=== PATIENT | male | born 1955 | race Caucasian/White ===

== ENCOUNTER 2016-05-12 17:46 | Inpatient (IN) | payer MEDICAID ==
[~2016-05-12] VITALS: Ht 175.3 cm; Wt 73.0 kg
[~2016-05-12 17:46] MED LIST: ACET325T14 PO; AMIO200T PO; AMOX-367 PO; ASPI-515 PO; ASPI-621 PO; ASPI-650 PO; CARV3.1212 PO; CARV3.122 PO; FURO-93 PO; FURO40TA6 PO; LISI5TAB7 PO; OXYC5TAB3 PO; POTA20PA8 PO; SULF1TAB24 PO
[2016-05-12] MEDS ORDERED: FENTANYL PF 100 MCG/2ML ONE (18:09)
[2016-05-12] MEDS ORDERED: ONDANSETRON 2MG/ML, 2ML ONE ×2 (18:09→19:23)
[2016-05-12] MEDS ORDERED: SODIUM CHLORIDE FLUSH 10ML SYR IVF ONE (18:30)
[2016-05-12] MEDS ORDERED: FENTANYL PF 100 MCG/2ML IV ONE (18:30)
[2016-05-12] MEDS ORDERED: ONDANSETRON 2MG/ML, 2ML IVPush ONE ×2 (18:30→20:00)
[2016-05-12] MEDS ORDERED: SODIUM CHLORIDE 0.9% 1,000ML IVBOLUS ONE ×2 (18:30→20:00)
[2016-05-12 18:38] LABS: HEMOGLOBIN 12.7 g/dL (13.7-18.0)
[2016-05-12 18:48] LABS: ASPARTATE AMINO TRANSFERASE 45 U/L (15-37); BLOOD UREA NITROGEN 20 mg/dL (7-18)
[2016-05-12 18:59] LABS: IS PT STATUS REG ER OR PRE ER? YES
[2016-05-12 19:19] LABS: ANISOCYTOSIS 1+; HYPOCHROMIA 1+; SPHEROCYTES 1+
[2016-05-12 19:20] LABS: OVALOCYTES 1+
[2016-05-12 19:40] LABS: ICTOTEST NEGATIVE
[2016-05-12] MEDS ORDERED: LORazepam 2 MG/ML, 1ML ONE (19:48)
[2016-05-12] MEDS ORDERED: PIPERACILLIN/TAZO/PMX 3.375GM 50 ML ONE (19:48)
[2016-05-12] MEDS ORDERED: PIPERACILLIN/TAZO/PMX 3.375GM 50 ML IV ONE (20:00)
[2016-05-12] MEDS ORDERED: LORazepam 2 MG/ML, 1ML IVPush ONE (20:00)
[2016-05-12] MEDS ORDERED: OMNIPAQUE 350 MG/ML, 100ML BOTTLE ONE (20:07)
[2016-05-12] MEDS ORDERED: ACETAMINOPHEN 500 MG TABLET PO ONE (21:00)
[2016-05-12] MEDS ORDERED: ACETAMINOPHEN 500 MG TABLET ONE (21:05)
[2016-05-12] MEDS ORDERED: ONDANSETRON 2MG/ML, 2ML IVP PRN (21:30)
[2016-05-12] MEDS ORDERED: ZOLPIDEM 5MG TABLET PO PRN (21:30)
[2016-05-12] MEDS ORDERED: PROMETHAZINE 25 MG/ML, 1ML IM PRN (21:30)
[2016-05-12] MEDS ORDERED: MORPHINE SULFATE 4 MG/ML, 1ML IVPush PRN (21:30)
[2016-05-12] MEDS ORDERED: OXYcodone IR 5MG TABLET PO PRN (21:30)
[2016-05-12] MEDS ORDERED: DOCUSATE 100 MG CAPSULE PO PRN (21:30)
[2016-05-12] MEDS ORDERED: BISACODYL 10 MG SUPP PR PRN (21:30)
[2016-05-12] MEDS ORDERED: POLYETHYLENE GLYCOL 17 GM PACKET PO PRN (21:30)
[2016-05-12] MEDS ORDERED: PANTOPRAZOLE 40 MG IV ONE (21:50)
[2016-05-12] MEDS: PANTOPRAZOLE 40 MG IV IVP SCH (21:52)
[2016-05-12] MEDS: SODIUM CHLORIDE 0.9% 1,000 ML IV SCH (21:54)
[2016-05-12] MEDS: PIPERACILLIN/TAZO/PMX 3.375GM 50 ML IV SCH (21:54)
[2016-05-12 22:16] LABS: DAU SCREEN DISCLAIMER
[2016-05-12] MEDS ORDERED: OMNIPAQUE 350 MG/ML, 75ML BOTTLE ONE (22:25)
[2016-05-12 22:51] LABS: IS PT STATUS REG ER OR PRE ER? YES
[2016-05-12] MEDS: SUCRALFATE 1 GM/10 ML UDC PO SCH (23:36)
[2016-05-13] MEDS ORDERED: OXYcodone IR 5MG TABLET ONE (02:50)
[2016-05-13] MEDS ORDERED: ACETAMINOPHEN 325 MG TABLET ONE (03:26)
[2016-05-13] MEDS ORDERED: PIPERACILLIN/TAZO/PMX 3.375GM 50 ML ONE (03:26)
[2016-05-13] MEDS: PIPERACILLIN/TAZO/PMX 3.375GM 50 ML IV SCH ×2 (03:33→08:35)
[2016-05-13] MEDS: ACETAMINOPHEN 325 MG TABLET PO PRN ×2 (03:33→08:33)
[2016-05-13] MEDS: SODIUM CHLORIDE 0.9% 1,000 ML IV SCH (05:34)
[2016-05-13 05:43] VITALS: BP 93/57
[2016-05-13] MEDS ORDERED: CARVEDILOL 3.125 MG TABLET PO SCH (06:00)
[2016-05-13 07:05] LABS: HEMOGLOBIN 10.7 g/dL (13.7-18.0)
[2016-05-13 07:10] LABS: ASPARTATE AMINO TRANSFERASE 62 U/L (15-37); BLOOD UREA NITROGEN 23 mg/dL (7-18)
[2016-05-13 07:17] LABS: IS PT STATUS REG ER OR PRE ER? NO
[2016-05-13 07:47] LABS: DIFF TOTAL CELLS COUNTED 100 CELL DIFF
[2016-05-13 07:49] LABS: VERIFY COUNTS? YES
[2016-05-13 07:50] LABS: ANISOCYTOSIS 1+; OVALOCYTES 1+
[2016-05-13 08:02] VITALS: BP_SYST 95; BP_SYST 96; BP_DIAS 60
[2016-05-13] MEDS: SUCRALFATE 1 GM/10 ML UDC PO SCH ×2 (08:33→11:13)
[2016-05-13] MEDS: PANTOPRAZOLE 40 MG IV IVP SCH (08:35)
[2016-05-13] MEDS ORDERED: LISINOPRIL 5 MG TABLET PO SCH (09:00)
[2016-05-13] MEDS ORDERED: SENNA/DOCUSATE TABLET PO SCH (09:00)
[2016-05-13] MEDS ORDERED: LORazepam 2 MG/ML, 1ML IV PRN (10:00)
== END 2016-05-13 12:06 | disposition left against medical advice (07) | DRG 871 ==
LOC: ED 19:56 → EDIP 20:48 → SUATTDRO 21:13 → 5SO 05-13 05:06
PROC: 0T9B70Z Drainage of Bladder with Drainage Device, Via Natural or Artificial Opening (ICD-10-PCS; principal; 2016-05-12)
DX: A41.9 Sepsis, unspecified organism (principal); N17.0 Acute kidney failure with tubular necrosis; K22.6 Gastro-esophageal laceration-hemorrhage syndrome; I42.9 Cardiomyopathy, unspecified; I50.22 Chronic systolic (congestive) heart failure; N13.2 Hydronephrosis with renal and ureteral calculous obstruction; I11.0 Hypertensive heart disease with heart failure; B18.2 Chronic viral hepatitis C; D64.9 Anemia, unspecified; F15.90 Other stimulant use, unspecified, uncomplicated; F19.10 Other psychoactive substance abuse, uncomplicated; R07.9 Chest pain, unspecified; R74.0 Nonspecific elevation of levels of transaminase and lactic acid dehydrogenase [LDH]; D69.6 Thrombocytopenia, unspecified; Z98.890 Other specified postprocedural states; Z79.899 Other long term (current) drug therapy; I25.2 Old myocardial infarction
CPT/HCPCS: 36415; 71010; 71260; 74177; 80053; 80307; 81001; 82010; 83605; 83690; 83880; 84145; 84484; 85018; 85025; 85610; 86850; 86900; 87040; 87086; 93005; 96361; 96365; 96375; 96376; J2405; J2543; J3010; Q9967; C9113; J2060; J7030

== ENCOUNTER 2016-06-14 11:35 | Emergency (ER) | payer MEDICAID ==
[~2016-06-14] VITALS: Ht 177.8 cm; Wt 76.2 kg
[2016-06-14] MEDS ORDERED: ACETAMINOPHEN 500 MG TABLET ONE (12:20)
[2016-06-14] MEDS ORDERED: KETOROLAC 30 MG/1 ML ONE (12:20)
[2016-06-14] MEDS ORDERED: CEFTRIAXONE PMX 1GM/50ML 50 ML ONE (12:20)
[2016-06-14] MEDS ORDERED: SODIUM CHLORIDE 0.9% 1,000ML IVBOLUS ONE (12:30)
[2016-06-14] MEDS ORDERED: ACETAMINOPHEN 500 MG TABLET PO ONE (12:30)
[2016-06-14] MEDS ORDERED: SODIUM CHLORIDE FLUSH 10ML SYR IVF ONE (12:30)
[2016-06-14] MEDS ORDERED: CEFTRIAXONE PMX 1GM/50ML 50 ML IVPB ONE (12:30)
[2016-06-14] MEDS ORDERED: KETOROLAC 30 MG/1 ML IVPush ONE (12:30)
[2016-06-14 12:42] LABS: BLOOD UREA NITROGEN 20 mg/dL (7-18)
[2016-06-14 12:46] VITALS: BP 142/91
[2016-06-14 12:47] LABS: DAU SCREEN DISCLAIMER; IS PT STATUS REG ER OR PRE ER? YES
== END 2016-06-14 15:38 | disposition left against medical advice (07) ==
LOC: ED 12:42 → UNDOADMIN 13:57 → EDIP 13:57
DX: F15.10 Other stimulant abuse, uncomplicated (principal); I11.0 Hypertensive heart disease with heart failure; E78.5 Hyperlipidemia, unspecified; I25.10 Atherosclerotic heart disease of native coronary artery without angina pectoris; I25.2 Old myocardial infarction
CPT/HCPCS: 36415; 71010; 80048; 80307; 81001; 82040; 83880; 84484; 85025; 85610; 85730; 87040; 87086; 87106; 93005; 96365; 96375; 99285; J0696; J1885

== ENCOUNTER 2016-08-05 18:14 | Inpatient (IN) | payer MEDICAID ==
[~2016-08-05] VITALS: Ht 175.3 cm; Wt 74.2 kg
[2016-08-05] MEDS ORDERED: ASPIRIN 81 MG TABLET CHEW ONE (18:50)
[2016-08-05] MEDS ORDERED: ASPIRIN 81 MG TABLET CHEW PO ONE (19:00)
[2016-08-05 19:18] LABS: ASPARTATE AMINO TRANSFERASE 75 U/L (15-37); BLOOD UREA NITROGEN 31 mg/dL (7-18)
[2016-08-05 19:23] LABS: IS PT STATUS REG ER OR PRE ER? YES
[2016-08-05] MEDS ORDERED: SODIUM CHLORIDE 0.9% 1,000 ML IV ONE (19:43)
[2016-08-05] MEDS ORDERED: ONDANSETRON 2MG/ML, 2ML IVPush PRN (20:00)
[2016-08-05] MEDS ORDERED: LEVOFLOXACIN/PMX 500MG/100ML 100 ML IV SCH (20:00)
[2016-08-05] MEDS ORDERED: CEFTRIAXONE 1,000 MG in SODIUM CHLORIDE 0.9% 50 ML IV SCH (20:30)
[2016-08-05] MEDS ORDERED: ACETAMINOPHEN 325 MG TABLET PO PRN (20:30)
[2016-08-05] MEDS ORDERED: AZITHROMYCIN 500 MG in SODIUM CHLORIDE 0.9% 250 ML IV SCH (20:30)
[2016-08-05] MEDS ORDERED: BISACODYL 10 MG SUPP PR PRN (20:30)
[2016-08-05] MEDS ORDERED: NITROGLYCERIN 0.4 MG BOTTLE (25 TABS) SL PRN (20:30)
[2016-08-05] MEDS ORDERED: POLYETHYLENE GLYCOL 17 GM PACKET PO PRN (20:30)
[2016-08-05] MEDS ORDERED: GUAIFENESIN/DM 200-20MG, 10ML UDC PO PRN (20:30)
[2016-08-05] MEDS: SODIUM CHLORIDE FLUSH 3ML SYRINGE IVF SCH (21:00)
[2016-08-05 21:30] VITALS: BP 109/58
[2016-08-05] MEDS: LISINOPRIL 5 MG TABLET PO SCH (22:14)
[2016-08-05] MEDS: FUROSEMIDE 20 MG TABLET PO SCH (22:14)
[2016-08-05] MEDS: HEPARIN 5,000 UNITS/ML, 1ML SQ SCH (22:15)
[2016-08-05] MEDS: CARVEDILOL 3.125 MG TABLET PO SCH (22:15)
[2016-08-06 01:28] LABS: IS PT STATUS REG ER OR PRE ER? NO
[2016-08-06 02:12] VITALS: BP 116/70
[2016-08-06] MEDS: KETOROLAC 30 MG/1 ML IVPush PRN ×2 (03:43→18:12)
[2016-08-06] MEDS: HEPARIN 5,000 UNITS/ML, 1ML SQ SCH ×3 (05:26→20:27)
[2016-08-06] MEDS: CARVEDILOL 3.125 MG TABLET PO SCH ×2 (05:26→18:13)
[2016-08-06 07:33] LABS: ASPARTATE AMINO TRANSFERASE 54 U/L (15-37); BLOOD UREA NITROGEN 32 mg/dL (7-18)
[2016-08-06 07:45] LABS: IS PT STATUS REG ER OR PRE ER? NO
[2016-08-06 08:06] VITALS: BP 107/61
[2016-08-06] MEDS ORDERED: SENNA/DOCUSATE TABLET PO SCH (09:00)
[2016-08-06] MEDS: ASPIRIN 81 MG TABLET EC PO SCH (09:15)
[2016-08-06] MEDS: LISINOPRIL 5 MG TABLET PO SCH ×2 (09:15→20:28)
[2016-08-06] MEDS: FUROSEMIDE 20 MG TABLET PO SCH ×2 (09:16→20:28)
[2016-08-06] MEDS ORDERED: REGADENOSON 0.4 MG/5 ML SYRINGE ONE (11:40)
[2016-08-06] MEDS: SODIUM CHLORIDE FLUSH 3ML SYRINGE IVF SCH ×2 (11:56→20:28)
[2016-08-06] MEDS: DOXYCYCLINE 100 MG in DEXTROSE 5% 250 ML IV SCH ×2 (11:56→22:35)
[2016-08-06 13:52] VITALS: BP 114/63
[2016-08-06 20:10] VITALS: BP 111/86
[2016-08-06] MEDS: CEFTRIAXONE PMX 1GM/50ML 50 ML IV SCH (20:27)
[2016-08-07 02:53] VITALS: BP 146/94
[2016-08-07] MEDS: CARVEDILOL 3.125 MG TABLET PO SCH ×2 (05:07→16:54)
[2016-08-07] MEDS: HEPARIN 5,000 UNITS/ML, 1ML SQ SCH ×3 (05:07→20:29)
[2016-08-07 05:57] LABS: ASPARTATE AMINO TRANSFERASE 65 U/L (15-37); BLOOD UREA NITROGEN 38 mg/dL (7-18)
[2016-08-07] MEDS ORDERED: REGADENOSON 0.4 MG/5 ML SYRINGE ONE (08:03)
[2016-08-07 08:10] VITALS: BP 140/90
[2016-08-07] MEDS: ONDANSETRON 2MG/ML, 2ML IVPush PRN (08:11)
[2016-08-07] MEDS: DOXYCYCLINE 100 MG in DEXTROSE 5% 250 ML IV SCH ×2 (10:03→22:02)
[2016-08-07] MEDS: ASPIRIN 81 MG TABLET EC PO SCH (10:03)
[2016-08-07] MEDS: SODIUM CHLORIDE FLUSH 3ML SYRINGE IVF SCH ×2 (10:03→20:29)
[2016-08-07] MEDS: FUROSEMIDE 20 MG TABLET PO SCH ×2 (10:04→20:28)
[2016-08-07] MEDS: LISINOPRIL 5 MG TABLET PO SCH ×2 (10:04→20:28)
[2016-08-07] MEDS: SENNA/DOCUSATE TABLET PO SCH (10:05)
[2016-08-07] MEDS: KETOROLAC 30 MG/1 ML IVPush PRN (12:43)
[2016-08-07] MEDS: GUAIFENESIN 200 MG TABLET PO SCH ×3 (13:21→20:28)
[2016-08-07 13:30] VITALS: BP 126/79
[2016-08-07 19:09] VITALS: BP 133/92
[2016-08-07] MEDS: CEFTRIAXONE PMX 1GM/50ML 50 ML IV SCH (20:28)
[2016-08-07] MEDS ORDERED: ZOLPIDEM 5MG TABLET PO PRN (20:30)
[2016-08-08 02:35] VITALS: BP 134/88
[2016-08-08] MEDS: CARVEDILOL 3.125 MG TABLET PO SCH (05:54)
[2016-08-08] MEDS: HEPARIN 5,000 UNITS/ML, 1ML SQ SCH (05:54)
[2016-08-08] MEDS: GUAIFENESIN 200 MG TABLET PO SCH (05:54)
[2016-08-08 07:57] VITALS: BP 147/93
[2016-08-08] MEDS: ASPIRIN 81 MG TABLET EC PO SCH (09:36)
[2016-08-08] MEDS: LISINOPRIL 5 MG TABLET PO SCH (09:36)
[2016-08-08] MEDS: SODIUM CHLORIDE FLUSH 3ML SYRINGE IVF SCH (09:37)
[2016-08-08] MEDS: FUROSEMIDE 20 MG TABLET PO SCH (09:37)
[2016-08-08] MEDS: SENNA/DOCUSATE TABLET PO SCH (09:37)
[2016-08-08] MEDS: ONDANSETRON 2MG/ML, 2ML IVPush PRN (09:41)
[2016-08-08] MEDS ORDERED: DOXY100T PO (10:18)
[2016-08-08] MEDS ORDERED: CEFD300C37 PO (10:18)
[2016-08-08] MEDS ORDERED: GUAI200T3 PO (10:18)
[2016-08-08] MEDS ORDERED: DOXYCYCLINE 100MG TABLET PO SCH (11:00)
[2016-08-08] MEDS ORDERED: CEFDINIR 300 MG CAPSULE PO SCH (21:00)
== END 2016-08-08 12:45 | disposition home or self-care (01) | DRG 194 ==
LOC: ED 19:14 → EDIP 20:17 → 4WST 21:11
PROVIDERS: ADMIT Internal Medicine; ATTEND Internal Medicine
DX: J18.9 Pneumonia, unspecified organism (principal); I42.9 Cardiomyopathy, unspecified; I50.22 Chronic systolic (congestive) heart failure; E44.1 Mild protein-calorie malnutrition; J98.11 Atelectasis; I13.0 Hypertensive heart and chronic kidney disease with heart failure and stage 1 through stage 4 chronic kidney disease, or unspecified chronic kidney disease; D69.6 Thrombocytopenia, unspecified; Z66 Do not resuscitate; B19.20 Unspecified viral hepatitis C without hepatic coma; F11.21 Opioid dependence, in remission; I35.0 Nonrheumatic aortic (valve) stenosis; Z68.21 Body mass index [BMI] 21.0-21.9, adult; N18.1 Chronic kidney disease, stage 1; I25.10 Atherosclerotic heart disease of native coronary artery without angina pectoris; E78.5 Hyperlipidemia, unspecified; K74.60 Unspecified cirrhosis of liver; I25.2 Old myocardial infarction; Z86.14 Personal history of Methicillin resistant Staphylococcus aureus infection
CPT/HCPCS: 36415; 71010; 80053; 83880; 84145; 84484; 85025; 87040; 93005; 93306; 96374; J0456; J0696; J1644; J1885; J1956; J2405; J2785; J7060; J7030; J7050

== ENCOUNTER 2016-09-26 05:20 | Emergency (ER) | payer MEDICAID ==
[~2016-09-26] VITALS: Ht 172.7 cm; Wt 72.3 kg
[~2016-09-26 05:20] MED LIST changes: +CEFD300C37 PO; +DOXY100T PO; +GUAI200T3 PO
[2016-09-26] MEDS ORDERED: ASPIRIN 81 MG TABLET CHEW PO ONE (06:00)
[2016-09-26] MEDS ORDERED: ASPIRIN 81 MG TABLET CHEW ONE (06:19)
[2016-09-26 06:41] VITALS: BP 136/87
[2016-09-26 06:44] LABS: ASPARTATE AMINO TRANSFERASE 57 U/L (15-37); BLOOD UREA NITROGEN 15 mg/dL (7-18)
[2016-09-26 06:49] LABS: IS PT STATUS REG ER OR PRE ER? YES
[2016-09-26] MEDS ORDERED: FUROSEMIDE 20 MG TABLET PO ONE (07:30)
== END 2016-09-26 07:43 | disposition home or self-care (01) ==
LOC: ED 05:53
DX: I11.0 Hypertensive heart disease with heart failure (principal); F15.10 Other stimulant abuse, uncomplicated
CPT/HCPCS: 36415; 71010; 80053; 83880; 84484; 85025; 93005; 99285

== ENCOUNTER 2016-12-04 21:36 | Emergency (ER) | payer MEDICAID ==
[~2016-12-04] VITALS: Ht 177.8 cm; Wt 75.0 kg
[~2016-12-04 21:36] MED LIST changes: +POTA20PA25 PO; -POTA20PA8 PO
[2016-12-04] MEDS ORDERED: LIDOCAINE 1%, 20ML ONE (21:51)
[2016-12-04] MEDS ORDERED: DIPH,PERTUSS(ACELL),TET VAC/PF 0.5 ML IM-VACC ONE ×2 (22:00→22:01)
[2016-12-04] MEDS ORDERED: LIDOCAINE 1%, 10ML INFIL ONE (22:00)
[2016-12-04 22:35] VITALS: BP 124/87
== END 2016-12-04 22:41 | disposition home or self-care (01) ==
LOC: ED 22:07
DX: L02.31 Cutaneous abscess of buttock (principal); E78.5 Hyperlipidemia, unspecified; I95.9 Hypotension, unspecified; I25.2 Old myocardial infarction; I50.9 Heart failure, unspecified; I25.10 Atherosclerotic heart disease of native coronary artery without angina pectoris; N18.1 Chronic kidney disease, stage 1; Z86.14 Personal history of Methicillin resistant Staphylococcus aureus infection
CPT/HCPCS: 90471; 90715

== ENCOUNTER 2016-12-08 04:07 | Emergency (ER) | payer MEDICAID ==
[~2016-12-08] VITALS: Ht 175.3 cm; Wt 72.0 kg
[2016-12-08 04:10] VITALS: BP 174/102
== END 2016-12-08 05:26 | disposition home or self-care (01) ==
LOC: ED 05:19
DX: Z48.01 Encounter for change or removal of surgical wound dressing (principal)
CPT/HCPCS: 99281

== ENCOUNTER 2016-12-09 21:28 | Emergency (ER) | payer MEDICAID ==
[~2016-12-09] VITALS: Ht 175.3 cm; Wt 68.8 kg
[2016-12-09 21:31] VITALS: BP 103/77
== END 2016-12-09 22:32 | disposition home or self-care (01) ==
LOC: ED 22:20
DX: L03.115 Cellulitis of right lower limb (principal); Z87.891 Personal history of nicotine dependence; I10 Essential (primary) hypertension; I25.2 Old myocardial infarction; Z86.14 Personal history of Methicillin resistant Staphylococcus aureus infection; I25.10 Atherosclerotic heart disease of native coronary artery without angina pectoris; E78.5 Hyperlipidemia, unspecified
CPT/HCPCS: 99281

== ENCOUNTER 2017-06-21 13:30 | Emergency (ER) | payer MEDICAID ==
[~2017-06-21] VITALS: Ht 175.3 cm; Wt 75.0 kg
[2017-06-21] MEDS ORDERED: ASPIRIN 81 MG TABLET CHEW PO ONE (14:00)
[2017-06-21] MEDS ORDERED: SODIUM CHLORIDE 0.9% 1,000ML IVBOLUS ONE (14:00)
[2017-06-21 14:26] LABS: BASOPHILS # (AUTO) 0.02 x10^3/uL (0-0.1); BASOPHILS % (AUTO) 0 % (0-1); EOSINOPHILS # (AUTO) 0.01 x10^3/uL (0-0.4); EOSINOPHILS % (AUTO) 0 % (1-7); LYMPHOCYTES # (AUTO) 1.02 x10^3/uL (1-3.4); LYMPHOCYTES % (AUTO) 12 % (22-44); MD NO; MEAN CORPUSCULAR HGB CONC 33.6 g/dL (33.2-36.2); MEAN CORPUSCULAR VOLUME 86.4 fL (81-97); MEAN PLATELET VOLUME 8.4 fL (7.4-10.4); MONOCYTES # (AUTO) 0.61 x10^3/uL (0.2-0.8); MONOCYTES % (AUTO) 7 % (2-9); NEUTROPHILS # (AUTO) 7.11 x10^3/uL (1.8-6.8); NEUTROPHILS % (AUTO) 81 % (42-75); PLATELET COUNT 217 x10^3/uL (130-400); RED BLOOD COUNT 4.86 x10^6/uL (4.38-5.82); RED CELL DISTRIBUTION WIDTH 15.7 % (9.4-14.8)
[2017-06-21] MEDS ORDERED: ASPIRIN 81 MG TABLET CHEW ONE (14:38)
[2017-06-21 14:39] LABS: ALANINE AMINOTRANSFERASE 77 U/L (12-78); ALBUMIN 3.7 g/dL (3.4-5.0); ANION GAP 9 mmol/L (5-15); CALCIUM 9.2 mg/dL (8.5-10.1); CHLORIDE 108 mmol/L (98-107); CREATININE 1.81 mg/dL (0.7-1.3)
[2017-06-21 14:44] LABS: ALKALINE PHOSPHATASE 119 U/L (45-117); BILIRUBIN,TOTAL 0.6 mg/dL (0.2-1.0); TOTAL PROTEIN 7.6 g/dL (6.4-8.2); TROPONIN I 0.022 ng/mL (0.000-0.045)
[2017-06-21 15:39] VITALS: BP 97/67
== END 2017-06-21 15:43 | disposition home or self-care (01) ==
LOC: ED 14:00
DX: R07.89 Other chest pain (principal); E78.5 Hyperlipidemia, unspecified; I25.110 Atherosclerotic heart disease of native coronary artery with unstable angina pectoris; I13.0 Hypertensive heart and chronic kidney disease with heart failure and stage 1 through stage 4 chronic kidney disease, or unspecified chronic kidney disease; N18.1 Chronic kidney disease, stage 1; I50.9 Heart failure, unspecified; Z87.891 Personal history of nicotine dependence
CPT/HCPCS: 36415; 71045; 80053; 83690; 83880; 84484; 85025; 93005; 99285; J7030; 96360

== ENCOUNTER 2017-07-19 15:08 | Emergency (ER) | payer MEDICAID ==
[~2017-07-19] VITALS: Ht 177.8 cm; Wt 73.1 kg
[2017-07-19 15:12] VITALS: BP 125/77
== END 2017-07-19 16:34 | disposition left against medical advice (07) ==
LOC: ED 16:00
DX: Z53.21 Procedure and treatment not carried out due to patient leaving prior to being seen by health care provider (principal)

== ENCOUNTER 2017-07-22 20:02 | Emergency (ER) | payer MEDICAID ==
[~2017-07-22] VITALS: Ht 177.8 cm; Wt 67.9 kg
[2017-07-22 21:48] VITALS: BP 129/79
== END 2017-07-22 21:50 | disposition home or self-care (01) ==
LOC: ED 21:00
DX: J44.1 Chronic obstructive pulmonary disease with (acute) exacerbation (principal); E78.5 Hyperlipidemia, unspecified; I25.2 Old myocardial infarction; I12.9 Hypertensive chronic kidney disease with stage 1 through stage 4 chronic kidney disease, or unspecified chronic kidney disease; N18.1 Chronic kidney disease, stage 1; I25.10 Atherosclerotic heart disease of native coronary artery without angina pectoris; I50.9 Heart failure, unspecified
CPT/HCPCS: 71046; 99284

== ENCOUNTER 2017-09-10 14:41 | Emergency (ER) | payer MEDICAID ==
[~2017-09-10] VITALS: Ht 175.3 cm; Wt 70.2 kg
[2017-09-10 15:16] LABS: BASOPHILS # (AUTO) 0.02 x10^3/uL (0-0.1); BASOPHILS % (AUTO) 0 % (0-1); EOSINOPHILS # (AUTO) 0.13 x10^3/uL (0-0.4); EOSINOPHILS % (AUTO) 2 % (1-7); LYMPHOCYTES # (AUTO) 1.43 x10^3/uL (1-3.4); LYMPHOCYTES % (AUTO) 22 % (22-44); MD NO; MEAN CORPUSCULAR HEMOGLOBIN 29.3 pg (27.5-34.5); MEAN CORPUSCULAR HGB CONC 33.1 g/dL (33.2-36.2); MEAN CORPUSCULAR VOLUME 88.4 fL (81-97); MEAN PLATELET VOLUME 8.3 fL (7.4-10.4); MONOCYTES # (AUTO) 0.51 x10^3/uL (0.2-0.8); MONOCYTES % (AUTO) 8 % (2-9); NEUTROPHILS # (AUTO) 4.45 x10^3/uL (1.8-6.8); NEUTROPHILS % (AUTO) 68 % (42-75); PLATELET COUNT 214 x10^3/uL (130-400); RED BLOOD COUNT 4.61 x10^6/uL (4.38-5.82); RED CELL DISTRIBUTION WIDTH 15.6 % (9.4-14.8)
[2017-09-10 15:20] LABS: ALBUMIN 3.7 g/dL (3.4-5.0); ANION GAP 6 mmol/L (5-15); CALCIUM 8.6 mg/dL (8.5-10.1); CHLORIDE 111 mmol/L (98-107)
[2017-09-10 15:25] LABS: ALANINE AMINOTRANSFERASE 77 U/L (12-78); ALKALINE PHOSPHATASE 129 U/L (45-117); BILIRUBIN,TOTAL 0.8 mg/dL (0.2-1.0); CREATININE 1.34 mg/dL (0.7-1.3); TOTAL PROTEIN 7.1 g/dL (6.4-8.2); TROPONIN I < 0.015 ng/mL (0.000-0.045)
[2017-09-10 15:38] VITALS: BP 143/88
== END 2017-09-10 15:58 | disposition home or self-care (01) ==
LOC: ED 15:00
DX: R42 Dizziness and giddiness (principal); J44.9 Chronic obstructive pulmonary disease, unspecified; I25.2 Old myocardial infarction; I24.9 Acute ischemic heart disease, unspecified; I13.0 Hypertensive heart and chronic kidney disease with heart failure and stage 1 through stage 4 chronic kidney disease, or unspecified chronic kidney disease; N18.1 Chronic kidney disease, stage 1; I50.9 Heart failure, unspecified; I25.10 Atherosclerotic heart disease of native coronary artery without angina pectoris; E78.5 Hyperlipidemia, unspecified; R11.10 Vomiting, unspecified
CPT/HCPCS: 36415; 71045; 80053; 82962; 83880; 84484; 85025; 93005; 99285

== ENCOUNTER 2017-09-20 01:40 | Emergency (ER) | payer MEDICAID ==
[~2017-09-20] VITALS: Ht 177.8 cm; Wt 75.0 kg
[2017-09-20 01:41] VITALS: BP 138/89
[2017-09-20 02:21] LABS: BASOPHILS # (AUTO) 0.02 x10^3/uL (0-0.1); BASOPHILS % (AUTO) 0 % (0-1); EOSINOPHILS # (AUTO) 0.01 x10^3/uL (0-0.4); EOSINOPHILS % (AUTO) 0 % (1-7); LYMPHOCYTES # (AUTO) 0.86 x10^3/uL (1-3.4); LYMPHOCYTES % (AUTO) 8 % (22-44); MD NO; MEAN CORPUSCULAR HEMOGLOBIN 29.6 pg (27.5-34.5); MEAN CORPUSCULAR HGB CONC 33.9 g/dL (33.2-36.2); MEAN CORPUSCULAR VOLUME 87.3 fL (81-97); MEAN PLATELET VOLUME 8.3 fL (7.4-10.4); MONOCYTES # (AUTO) 0.85 x10^3/uL (0.2-0.8); MONOCYTES % (AUTO) 8 % (2-9); NEUTROPHILS # (AUTO) 9.56 x10^3/uL (1.8-6.8); NEUTROPHILS % (AUTO) 85 % (42-75); PLATELET COUNT 158 x10^3/uL (130-400); RED BLOOD COUNT 4.14 x10^6/uL (4.38-5.82); RED CELL DISTRIBUTION WIDTH 15.9 % (9.4-14.8)
[2017-09-20 02:33] LABS: ALANINE AMINOTRANSFERASE 68 U/L (12-78); ALBUMIN 3.6 g/dL (3.4-5.0); ANION GAP 6 mmol/L (5-15); CALCIUM 8.6 mg/dL (8.5-10.1); CHLORIDE 109 mmol/L (98-107); CREATININE 1.13 mg/dL (0.7-1.3)
[2017-09-20 02:35] LABS: ALKALINE PHOSPHATASE 114 U/L (45-117); BILIRUBIN,TOTAL 1.2 mg/dL (0.2-1.0); TOTAL PROTEIN 6.8 g/dL (6.4-8.2)
== END 2017-09-20 05:08 | disposition home or self-care (01) ==
LOC: ED 05:04
DX: K64.4 Residual hemorrhoidal skin tags (principal); K62.5 Hemorrhage of anus and rectum; I13.0 Hypertensive heart and chronic kidney disease with heart failure and stage 1 through stage 4 chronic kidney disease, or unspecified chronic kidney disease; I50.9 Heart failure, unspecified; I25.2 Old myocardial infarction; N18.1 Chronic kidney disease, stage 1; J44.9 Chronic obstructive pulmonary disease, unspecified; E78.00 Pure hypercholesterolemia, unspecified
CPT/HCPCS: 36415; 80053; 83690; 85025; 99284

== ENCOUNTER 2017-12-08 17:10 | Emergency (ER) | payer MEDICAID ==
[~2017-12-08] VITALS: Ht 175.3 cm; Wt 68.8 kg
[2017-12-08 17:20] VITALS: BP 149/99
[2017-12-08] MEDS ORDERED: KETOROLAC 30 MG/1 ML ONE (18:00)
[2017-12-08] MEDS ORDERED: KETOROLAC 30 MG/1 ML IM ONE (18:00)
== END 2017-12-08 18:27 | disposition home or self-care (01) ==
LOC: ED 18:21
DX: S90.851A Superficial foreign body, right foot, initial encounter (principal); J44.9 Chronic obstructive pulmonary disease, unspecified; I13.0 Hypertensive heart and chronic kidney disease with heart failure and stage 1 through stage 4 chronic kidney disease, or unspecified chronic kidney disease; I50.9 Heart failure, unspecified; N18.1 Chronic kidney disease, stage 1; E78.5 Hyperlipidemia, unspecified; I25.10 Atherosclerotic heart disease of native coronary artery without angina pectoris; I25.2 Old myocardial infarction; F17.200 Nicotine dependence, unspecified, uncomplicated; X58.XXXA Exposure to other specified factors, initial encounter; Y93.89 Activity, other specified; Y92.89 Other specified places as the place of occurrence of the external cause; Y99.8 Other external cause status
CPT/HCPCS: 73630; 96372; 99284; J1885

== ENCOUNTER 2018-02-15 00:16 | Inpatient (IN) | payer MEDICAID ==
[~2018-02-15] VITALS: Ht 177.8 cm; Wt 70.4 kg
[~2018-02-15 00:16] MED LIST changes: -ASPI-621 PO; +ASPI81TA45 PO
--- NOTE | 2018-02-15 00:29 | NUR ---
EKG DONE IN TRIAGE
--- NOTE | 2018-02-15 00:36 | NUR ---
Pt reports having CP and nausea "everytime I take my new heart medication" x1 week. pt states he was in [facility] last week for pneumonia and was placed on new heart medication r/t "lasix's kidney damage." Pt reports also having SOB. Pt a/ox4, breathing E/U at this time, lung clear t/o, VSS. Pt reports he uses meth occationally. denies drinking and smoking. Pt conversing well. Pt placed on cardiac and VS monitoring. Provider to bedside for pt eval.
--- NOTE | 2018-02-15 00:38 | NUR ---
BREAK RN: Dr. Francis at bedside to evaluate pt.
--- NOTE | 2018-02-15 00:42 | NUR ---
Report to Kathryn for lunch relief.
[2018-02-15] MEDS ORDERED: ONDANSETRON 2MG/ML, 2ML ONE (00:53)
[2018-02-15] MEDS ORDERED: ASPIRIN 81 MG TABLET CHEW ONE (00:53)
[2018-02-15] MEDS ORDERED: MORPHINE SULFATE 4 MG/ML, 1ML ONE (00:54)
[2018-02-15] MEDS ORDERED: ONDANSETRON 2MG/ML, 2ML IVPush ONE (01:00)
[2018-02-15] MEDS ORDERED: MORPHINE SULFATE 4 MG/ML, 1ML IVPush PRN (01:00)
[2018-02-15] MEDS ORDERED: ASPIRIN 81 MG TABLET CHEW PO ONE (01:00)
--- NOTE | 2018-02-15 01:15 | NUR ---
PIV started, labs drawn, pt medicated per MAR.
[2018-02-15 01:29] LABS: BASOPHILS # (AUTO) 0.03 x10^3/uL (0-0.1); BASOPHILS % (AUTO) 1 % (0-1); EOSINOPHILS # (AUTO) 0.21 x10^3/uL (0-0.4); EOSINOPHILS % (AUTO) 3 % (1-7); LYMPHOCYTES # (AUTO) 0.96 x10^3/uL (1-3.4); LYMPHOCYTES % (AUTO) 15 % (22-44); MD NO; MEAN CORPUSCULAR HEMOGLOBIN 29.2 pg (27.5-34.5); MEAN CORPUSCULAR HGB CONC 33.1 g/dL (33.2-36.2); MEAN CORPUSCULAR VOLUME 88.1 fL (81-97); MEAN PLATELET VOLUME 8.6 fL (7.4-10.4); MONOCYTES # (AUTO) 0.48 x10^3/uL (0.2-0.8); MONOCYTES % (AUTO) 7 % (2-9); NEUTROPHILS # (AUTO) 4.91 x10^3/uL (1.8-6.8); NEUTROPHILS % (AUTO) 75 % (42-75); PLATELET COUNT 223 x10^3/uL (130-400); RED BLOOD COUNT 3.91 x10^6/uL (4.38-5.82); RED CELL DISTRIBUTION WIDTH 16.4 % (9.4-14.8)
[2018-02-15 01:38] LABS: ALANINE AMINOTRANSFERASE 153 U/L (12-78); ALBUMIN 3.2 g/dL (3.4-5.0); ANION GAP 7 mmol/L (5-15); CALCIUM 8.8 mg/dL (8.5-10.1); CHLORIDE 111 mmol/L (98-107)
[2018-02-15 01:43] LABS: ALKALINE PHOSPHATASE 160 U/L (45-117); BILIRUBIN,TOTAL 0.4 mg/dL (0.2-1.0); CREATININE 1.31 mg/dL (0.7-1.3); TOTAL PROTEIN 6.6 g/dL (6.4-8.2)
--- NOTE | 2018-02-15 01:44 | NUR ---
Pt up to restroom with steady gait.
[2018-02-15 01:45] LABS: TROPONIN I 0.126 ng/mL (0.000-0.045)
[2018-02-15] MEDS ORDERED: SPIR25TA5 PO (02:03)
[2018-02-15] MEDS ORDERED: CEFD300C37 PO (02:03)
[2018-02-15] MEDS ORDERED: ASPI-515 PO (02:03)
--- NOTE | 2018-02-15 02:15 | NUR ---
Provider to bedside for pt update complete. repeat EKG complete and MD reviewed. Pt to have heparin drip. Pt reports CP has resolved.
[2018-02-15] MEDS ORDERED: HEPARIN 25,000 UNITS/500ML PMX 500 ML ONE (02:16)
[2018-02-15] MEDS ORDERED: HEPARIN 5,000 UNITS/ML, 1ML ONE (02:29)
[2018-02-15] MEDS ORDERED: HEPARIN 5,000 UNITS/ML, 1ML IV ONE (02:30)
[2018-02-15] MEDS: HEPARIN 25,000 UNITS/500ML PMX 500 ML IV PRN (02:54)
[2018-02-15] MEDS ORDERED: PROMETHAZINE 25 MG/ML, 1ML IM PRN (03:00)
[2018-02-15] MEDS ORDERED: GABAPENTIN 300 MG CAPSULE PO PRN (03:00)
[2018-02-15] MEDS ORDERED: LABETALOL 5MG/ML, 20ML IVPush PRN (03:00)
[2018-02-15] MEDS ORDERED: hydrALAzine 20 MG/ML, 1ML IVPush PRN (03:00)
[2018-02-15] MEDS ORDERED: BISACODYL 10 MG SUPP PR PRN (03:00)
[2018-02-15] MEDS ORDERED: DOCUSATE 100 MG CAPSULE PO PRN (03:00)
[2018-02-15] MEDS ORDERED: NITROGLYCERIN 0.4 MG BOTTLE (25 TABS) SL PRN (03:00)
[2018-02-15] MEDS ORDERED: ONDANSETRON 2MG/ML, 2ML IVPush PRN (03:00)
[2018-02-15] MEDS ORDERED: ONDANSETRON ODT 4 MG PO PRN (03:00)
[2018-02-15] MEDS ORDERED: POLYETHYLENE GLYCOL 17 GM PACKET PO PRN (03:00)
--- NOTE | 2018-02-15 03:06 | NUR ---
H to bedside for pt eval complete. pt resting comfortably, pt recieved heparin per orders/protocol. Pt awaiting bed assignment. VS and cardiac monitoring continues. call light in reach.
--- NOTE | 2018-02-15 03:30 | NUR ---
Pt sleeping, breathing E/U. Pt repositions self, warm blanket provided. pt continues on monitor. no distress noted.
[2018-02-15 03:32] LABS: HEMOGLOBIN A1C 5.9 % (4.2-6.3)
[2018-02-15 03:34] LABS: FREE T4 (FREE THYROXINE) 1.04 ng/dL (0.76-1.46); THYROID STIMULATING HORMONE 0.874 mIU/L (0.358-3.740)
--- NOTE | 2018-02-15 04:00 | NUR ---
Pt continues to sleep, breathing E/U. will monitor.
[2018-02-15] MEDS ORDERED: FUROSEMIDE 20 MG/2 ML ONE (04:22)
[2018-02-15] MEDS: FUROSEMIDE 20 MG/2 ML IV SCH ×3 (04:23→16:50)
--- NOTE | 2018-02-15 04:26 | NUR ---
Lasix given per orders, see emar. patient continues to sleep. monitor continues in place. no distress noted.
--- NOTE | 2018-02-15 04:42 | NUR ---
Pt given urinal to void.
--- NOTE | 2018-02-15 04:52 | NUR ---
Report to David BECKMAN. pt to go to room.
--- NOTE | 2018-02-15 05:13 | NUR ---
Lab at bedside for blood draw.
--- NOTE | 2018-02-15 05:17 | NUR ---
Pt up at bedside to use urinal, steady gait.
[2018-02-15 05:37] VITALS: BP 116/79
[2018-02-15 05:44] LABS: TROPONIN I 0.121 ng/mL (0.000-0.045)
[2018-02-15] MEDS ORDERED: ASPIRIN 325 MG TABLET EC PO SCH (06:00)
[2018-02-15 06:23] VITALS: BP 104/80
[2018-02-15] MEDS: ASPIRIN 81 MG TABLET EC PO SCH ×2 (09:00→10:06)
[2018-02-15] MEDS: HEPARIN 5,000 UNITS/ML, 1ML IV PRN ×2 (10:05→16:50)
[2018-02-15 11:45] LABS: TROPONIN I 0.121 ng/mL (0.000-0.045)
[2018-02-15 12:46] VITALS: BP 114/80
[2018-02-15 16:48] VITALS: BP 114/75
[2018-02-15 20:52] VITALS: BP 120/74
[2018-02-16] MEDS: HEPARIN 5,000 UNITS/ML, 1ML IV PRN ×4 (00:03→22:52)
[2018-02-16 01:05] VITALS: BP 106/69
[2018-02-16] MEDS: HEPARIN 25,000 UNITS/500ML PMX 500 ML IV PRN ×2 (01:58→19:20)
[2018-02-16 06:33] VITALS: BP 114/79
[2018-02-16 06:53] LABS: BASOPHILS # (AUTO) 0.02 x10^3/uL (0-0.1); BASOPHILS % (AUTO) 1 % (0-1); EOSINOPHILS # (AUTO) 0.19 x10^3/uL (0-0.4); EOSINOPHILS % (AUTO) 4 % (1-7); LYMPHOCYTES # (AUTO) 1.12 x10^3/uL (1-3.4); LYMPHOCYTES % (AUTO) 25 % (22-44); MD NO; MEAN CORPUSCULAR HEMOGLOBIN 29.1 pg (27.5-34.5); MEAN CORPUSCULAR HGB CONC 33.2 g/dL (33.2-36.2); MEAN CORPUSCULAR VOLUME 87.4 fL (81-97); MEAN PLATELET VOLUME 8.1 fL (7.4-10.4); MONOCYTES # (AUTO) 0.37 x10^3/uL (0.2-0.8); MONOCYTES % (AUTO) 8 % (2-9); NEUTROPHILS # (AUTO) 2.81 x10^3/uL (1.8-6.8); NEUTROPHILS % (AUTO) 62 % (42-75); PLATELET COUNT 192 x10^3/uL (130-400); RED BLOOD COUNT 3.73 x10^6/uL (4.38-5.82); RED CELL DISTRIBUTION WIDTH 15.9 % (9.4-14.8)
[2018-02-16 06:58] LABS: ALANINE AMINOTRANSFERASE 115 U/L (12-78); ALBUMIN 2.9 g/dL (3.4-5.0); ANION GAP 6 mmol/L (5-15); CALCIUM 8.2 mg/dL (8.5-10.1); CHLORIDE 110 mmol/L (98-107)
[2018-02-16 07:00] LABS: TROPONIN I 0.084 ng/mL (0.000-0.045)
[2018-02-16 07:02] LABS: ALKALINE PHOSPHATASE 147 U/L (45-117); BILIRUBIN,TOTAL 0.4 mg/dL (0.2-1.0); CHOL/HDL RATIO 2.7; CHOLESTEROL, TOTAL 189 mg/dL (140-239); HDL CHOL % 38 % (26-37); HDL CHOLESTEROL (DIRECT) 71 mg/dL (40-60); LDL CHOLESTEROL,CALCULATED 107 mg/dL (54-169); LDL/HDL RATIO 1.5 (0.5-3.0); TOTAL PROTEIN 6.2 g/dL (6.4-8.2); TRIGLYCERIDES 53 mg/dL (50-200); VLDL CHOLESTEROL 11 mg/dL (0-25)
[2018-02-16] MEDS: FUROSEMIDE 20 MG/2 ML IV SCH ×2 (07:55→17:52)
[2018-02-16] MEDS: ASPIRIN 81 MG TABLET EC PO SCH (07:55)
[2018-02-16] MEDS ORDERED: REGADENOSON 0.4 MG/5 ML SYRINGE ONE (08:33)
[2018-02-16 12:43] VITALS: BP 110/68
[2018-02-16 17:50] VITALS: BP 118/77
[2018-02-16 17:55] LABS: AMPHETAMINE SCREEN, URINE Positive (Negative); BARBITURATE SCREEN, URINE Negative (Negative); BENZODIAZEPINE SCREEN, URINE Negative (Negative); CANNABINOID SCREEN, URINE Negative (Negative); COCAINE SCREEN, URINE Negative (Negative); METHADONE SCREEN, URINE Negative (Negative); OPIATE SCREEN, URINE Negative (Negative)
[2018-02-16 18:48] VITALS: BP 109/68
[2018-02-17 01:35] VITALS: BP 133/87
[2018-02-17 05:21] LABS: BASOPHILS # (AUTO) 0.02 x10^3/uL (0-0.1); BASOPHILS % (AUTO) 0 % (0-1); EOSINOPHILS # (AUTO) 0.22 x10^3/uL (0-0.4); EOSINOPHILS % (AUTO) 5 % (1-7); LYMPHOCYTES # (AUTO) 1.09 x10^3/uL (1-3.4); LYMPHOCYTES % (AUTO) 25 % (22-44); MD NO; MEAN CORPUSCULAR HEMOGLOBIN 29.1 pg (27.5-34.5); MEAN CORPUSCULAR HGB CONC 33.1 g/dL (33.2-36.2); MEAN CORPUSCULAR VOLUME 87.9 fL (81-97); MEAN PLATELET VOLUME 8.7 fL (7.4-10.4); MONOCYTES % (AUTO) 12 % (2-9); NEUTROPHILS # (AUTO) 2.57 x10^3/uL (1.8-6.8); NEUTROPHILS % (AUTO) 59 % (42-75); PLATELET COUNT 186 x10^3/uL (130-400); RED BLOOD COUNT 3.94 x10^6/uL (4.38-5.82); RED CELL DISTRIBUTION WIDTH 16.6 % (9.4-14.8)
[2018-02-17 05:31] LABS: ANION GAP 5 mmol/L (5-15); CHLORIDE 108 mmol/L (98-107)
[2018-02-17 05:35] LABS: ALANINE AMINOTRANSFERASE 106 U/L (12-78); ALKALINE PHOSPHATASE 144 U/L (45-117); BILIRUBIN,TOTAL 0.3 mg/dL (0.2-1.0); CREATININE 1.02 mg/dL (0.7-1.3); TOTAL PROTEIN 6.5 g/dL (6.4-8.2)
[2018-02-17 06:57] VITALS: BP 115/72
[2018-02-17] MEDS: FUROSEMIDE 20 MG/2 ML IV SCH ×2 (08:28→17:32)
[2018-02-17] MEDS: ASPIRIN 81 MG TABLET EC PO SCH (08:28)
[2018-02-17] MEDS: LISINOPRIL 5 MG TABLET PO SCH (12:40)
[2018-02-17 14:24] VITALS: BP 106/68
[2018-02-17 19:25] VITALS: BP 130/78
[2018-02-18 00:08] VITALS: BP 127/77
[2018-02-18 04:50] LABS: BASOPHILS % (AUTO) 0 % (0-1); EOSINOPHILS # (AUTO) 0.24 x10^3/uL (0-0.4); EOSINOPHILS % (AUTO) 4 % (1-7); LYMPHOCYTES # (AUTO) 1.26 x10^3/uL (1-3.4); LYMPHOCYTES % (AUTO) 20 % (22-44); MD NO; MEAN CORPUSCULAR HEMOGLOBIN 29.2 pg (27.5-34.5); MEAN CORPUSCULAR HGB CONC 33.4 g/dL (33.2-36.2); MEAN CORPUSCULAR VOLUME 87.4 fL (81-97); MEAN PLATELET VOLUME 8.4 fL (7.4-10.4); MONOCYTES # (AUTO) 0.74 x10^3/uL (0.2-0.8); MONOCYTES % (AUTO) 12 % (2-9); NEUTROPHILS # (AUTO) 3.97 x10^3/uL (1.8-6.8); NEUTROPHILS % (AUTO) 64 % (42-75); PLATELET COUNT 222 x10^3/uL (130-400); RED BLOOD COUNT 4.22 x10^6/uL (4.38-5.82); RED CELL DISTRIBUTION WIDTH 16.6 % (9.4-14.8)
[2018-02-18 05:01] LABS: ALBUMIN 3.1 g/dL (3.4-5.0); ANION GAP 5 mmol/L (5-15); CALCIUM 8.9 mg/dL (8.5-10.1); CHLORIDE 109 mmol/L (98-107); CREATININE 1.12 mg/dL (0.7-1.3)
[2018-02-18] MEDS: FUROSEMIDE 20 MG/2 ML IV SCH (07:30)
[2018-02-18 09:03] VITALS: BP 103/71
[2018-02-18] MEDS ORDERED: SPIRONOLACTONE 25 MG TABLET PO SCH (10:00)
[2018-02-18] MEDS ORDERED: FUROSEMIDE 40 MG TABLET PO SCH (10:00)
[2018-02-18] MEDS: LISINOPRIL 5 MG TABLET PO SCH (10:48)
[2018-02-18] MEDS: ASPIRIN 81 MG TABLET EC PO SCH (10:49)
[2018-02-18] MEDS ORDERED: CARV3.1212 PO (11:00)
[2018-02-18] MEDS ORDERED: FURO40TA6 PO (11:00)
[2018-02-18] MEDS ORDERED: LISI5TAB7 PO (12:14)
[2018-02-18] MEDS ORDERED: CARVEDILOL 3.125 MG TABLET PO SCH (18:00)
== END 2018-02-18 13:58 | disposition home or self-care (01) | DRG 280 ==
LOC: ED 00:55 → EDIP 02:36 → 5SO 05:44
PROVIDERS: ADMIT Internal Medicine; ATTEND Internal Medicine
DX: I21.4 Non-ST elevation (NSTEMI) myocardial infarction (principal); I50.43 Acute on chronic combined systolic (congestive) and diastolic (congestive) heart failure; I13.0 Hypertensive heart and chronic kidney disease with heart failure and stage 1 through stage 4 chronic kidney disease, or unspecified chronic kidney disease; B18.1 Chronic viral hepatitis B without delta-agent; E44.0 Moderate protein-calorie malnutrition; F11.20 Opioid dependence, uncomplicated; I42.9 Cardiomyopathy, unspecified; E78.5 Hyperlipidemia, unspecified; B18.2 Chronic viral hepatitis C; D69.6 Thrombocytopenia, unspecified; F15.10 Other stimulant abuse, uncomplicated; Z71.51 Drug abuse counseling and surveillance of drug abuser; I25.2 Old myocardial infarction; I35.0 Nonrheumatic aortic (valve) stenosis; N18.1 Chronic kidney disease, stage 1; Z87.01 Personal history of pneumonia (recurrent); Z87.891 Personal history of nicotine dependence; Z91.19 Patient's noncompliance with other medical treatment and regimen
CPT/HCPCS: 36415; 71045; 78452; 80048; 80053; 80061; 80307; 82040; 83036; 83735; 83880; 84100; 84439; 84443; 84484; 85025; 85520; 93005; 93017; 96374; 96375; 99291; C8929; G0378; J1644; J2405; J2785; Q9957; A9502; C9898; J1940